=== PATIENT | female | born 1970 | race Native Hawaiian/Other Pacific Islander ===

== ENCOUNTER 2018-11-16 12:26 | Emergency (ER) | payer SELFPAY ==
--- NOTE | 2018-11-16 13:49 | Emergency Department Report ---
Chief Complaint: Dizziness Stated Complaint: DIZZY A WEEK Time Seen by Provider: 11/16/18 13:45 - HPI History of Present Illness: 48-year-old female presents to the emergency department with a one-week history of dizziness/lightheadedness, as if she is going to pass out. At first it occurred only every 2-3 days but for the past 1-2 days it has been pretty consistent. Yesterday she felt that she would've fallen over her was not there to catch her. She has a throbbing headache. No vision change, slurred speech or any neurological deficits. She denies any past medical history. No recent travel or sick contacts at home. No primary care physician. She has not taken anything prior to arrival. - ROS Review of Systems: Positive for dizziness/lightheadedness, headache Negative for vision change, slurred speech, chest pain, fever - Exam Vital Signs: Vital Signs 11/16/18 12:51 Temperature 98.7 F Pulse Rate 78 Respiratory 18 Rate Blood Pressure 104/69 O2 Sat by Pulse 98 Oximetry Physical Exam: Cranial nerves are intact. Heart and lung sounds are normal to auscultation. Patient is awake and alert MSE screening note: Focused history and physical exam performed. Due to findings the following was ordered: I ordered a CBC, BMP, thyroid, test and a CT scan of the head without contrast. EKG is normal without ST elevation IL, ischemia or dysrhythmia. ED Disposition for MSE Condition: Stable
[2018-11-16 14:18] LABS: Basophils % (Auto) 0.9 % (0.0-1.8); Eosinophils # (Auto) 0.1 K/mm3 (0.0-0.4); Eosinophils % (Auto) 2.8 % (0.0-4.3); Hematocrit 38.9 % (30.3-42.9); Hemoglobin 12.6 gm/dl (10.1-14.3); Lymphocytes # (Auto) 2.1 K/mm3 (1.2-5.4); Lymphocytes % (Auto) 43.2 % (13.4-35.0); Mean Corpuscular HGB Conc 32 % (30-34); Mean Corpuscular Hemoglobin 28 pg (28-32); Mean Corpuscular Volume 87 fl (79-97); Monocytes # (Auto) 0.5 K/mm3 (0.0-0.8); Monocytes % (Auto) 10.9 % (0.0-7.3); Platelet Count 292 K/mm3 (140-440); Red Blood Count 4.47 M/mm3 (3.65-5.03)
[2018-11-16 14:32] LABS: BUN/Creatinine Ratio 26; Blood Urea Nitrogen 13 mg/dL (7-17); Calcium 8.9 mg/dL (8.4-10.2); Hemolysis Index 33
[2018-11-16] MEDS ORDERED: NACL 0.9% 1000 ML 1,000 ML IV ONE ×2 (14:55→15:45)
--- NOTE | 2018-11-16 15:35 | Cat Scan Report ---
FINAL REPORT PROCEDURE: CT HEAD/BRAIN WO CON TECHNIQUE: Computerized tomography of the head was performed without contrast material. HISTORY: dizziness, headache COMPARISON: No prior studies are available for comparison. FINDINGS: Brain: Brain density appears normal. No evidence of intracranial hemorrhage. No parenchymal hemorrh age, mass lesions or mass effect are seen. No abnormal extraxial fluid collects or masses are seen. Ventricles: Ventricles are normal size and are midline. Bone Windows: No evidence of skull fracture. Paranasal sinuses: Visualized portions are clear. Mastoid air cells: Visualized portions are clear. IMPRESSION: Negative exam.
--- NOTE | 2018-11-16 15:57 | Emergency Department Report ---
ED Dizziness HPI - General Chief Complaint: Dizziness Stated Complaint: DIZZY A WEEK Time Seen by Provider: 11/16/18 13:45 Source: patient Mode of arrival: Ambulatory Limitations: No Limitations - History of Present Illness Initial Comments: This is a 48-year-old female nontoxic, well nourished in appearance, no acute signs of distress presents to the ED with c/o of intermittent dizziness and lightheadedness x1 week. Patient stated that she feels like she will pass out but denies any syncope episodes. Patient is also c/o of intermittent headaches. Patient describes headache as diffuse with level of 3 out of 10. Patient denies thunderclap headache. Patient denies any radiation of pain. Patient denies any head trauma. Patient denies any visual changes. Patient denies worse headache. Patient denies any numbness, tingling, fever, chills, nausea, vomiting, chest pain, shortness of breath, stiff neck. Patient denies any radiation of pain. Patient denies any allergies or PMH. MD Complaint: dizziness, lightheadedness -: week(s) (1) Timing: intermittent Description: lightheadedness History of Same: No History of Trauma: No Severity: mild Improves With: nothing Worsens With: nothing Associated Symptoms: denies other symptoms. denies: ataxia, chest pain, confusion, cough, diaphoresis, fever/chills, loss of appetite, malaise, seizure, shortness of breath, syncope, weakness - Related Data Allergies Allergy/AdvReac Type Severity Reaction Status Date / Time No Known Allergies Allergy Unverified 11/16/18 12:53 ED Review of Systems ROS: Stated complaint: DIZZY A WEEK Other details as noted in HPI Constitutional: denies: chills, fever Eyes: denies: eye pain, eye discharge, vision change ENT: denies: ear pain, throat pain Respiratory: denies: cough, shortness of breath, wheezing Cardiovascular: denies: chest pain, palpitations Endocrine: no symptoms reported Gastrointestinal: denies: abdominal pain, nausea, diarrhea Genitourinary: denies: urgency, dysuria, discharge Musculoskeletal: denies: back pain, joint swelling, arthralgia Skin: denies: rash, lesions Neurological: vertigo. denies: headache, weakness, paresthesias Psychiatric: denies: anxiety, depression Hematological/Lymphatic: denies: easy bleeding, easy bruising ED Past Medical Hx - Past Medical History Previous Medical History?: No - Surgical History Past Surgical History?: Yes Additional Surgical History: gallstones,tonsillectomy, - Social History Smoking Status: Current Some Day Smoker Substance Use Type: None ED Physical Exam - General Limitations: No Limitations General appearance: alert, in no apparent distress - Head Head exam: Present: atraumatic, normocephalic - Eye Eye exam: Present: normal appearance, PERRL, EOMI - ENT ENT exam: Present: normal exam - Neck Neck exam: Present: normal inspection, full ROM. Absent: tenderness, me ningismus - Respiratory Respiratory exam: Present: normal lung sounds bilaterally. Absent: respiratory distress, wheezes, rales, rhonchi, stridor, chest wall tenderness, accessory muscle use, decreased breath sounds, prolonged expiratory - Cardiovascular Cardiovascular Exam: Present: regular rate, normal rhythm, normal heart sounds. Absent: bradycardia, tachycardia, irregular rhythm, systolic murmur, diastolic murmur, rubs, gallop - Extremities Exam Extremities exam: Present: normal inspection, full ROM - Back Exam Back exam: Present: normal inspection, full ROM - Neurological Exam Neurological exam: Present: alert, oriented X3, normal gait - Expanded Neurological Exam Expanded Patient oriented to: Present: person, place, time Cranial nerves: EOM's Intact: Normal, Facial Sensation: Normal Cerebellar function: Finger to Nose: Normal Upper motor neuron: Sensory Extinction: Normal Sensory exam: Upper Extremity Light Touch: Normal, Upper Extremity Pin Prick: Normal, Upper Extremity Temperature: Normal, UE 2 Point Discrimination: Normal, Lower Extremity Light Touch: Normal, Lower Extremity Pin Prick: Normal, Lower Extremity Temperature: Normal, LE 2 Point Discrimination: Normal Motor strength exam: RUE: 5, LUE: 5, RLE: 5, LLE: 5 Best Eye Response ([place]): (4) open spontaneously Best Motor Response ([place]): (6) obeys commands Best Verbal Response ([place]): (5) oriented [place] Total: 15 - Psychiatric Psychiatric exam: Present: normal affect, normal mood - Skin Skin exam: Present: warm, dry, intact, normal color. Absent: rash ED Course Vital Signs 11/16/18 12:51 Temperature 98.7 F Pulse Rate 78 Respiratory 18 Rate Blood Pressure 104/69 O2 Sat by Pulse 98 Oximetry - Reevaluation(s) Reevaluation #1: 11/16/18 16:06 Patient is speaking in full sentences with no signs of distress noted. ED Medical Decision Making - Lab Data Result diagrams: 11/16/18 14:02 11/16/18 14:02 - Medical Decision Making This is a 48-year-old female that presents with dizziness. Patient is stable and was examined by me and Dr. Bosch. Patient is neurologically stable. There is no stiff neck or neck pain. Vital signs are stable. Patient is afebrile. Labs unremarkable. CT of head unremarkable and dictated by the radiologist. Patient received 2 L of normal saline which the patient stated that headache has subsided and resolved. Orthostatic vital signs obtained and does have some orthostatic vitals. Post-treatment vital signs are much better. Patient was referred to Follow-up with a primary care/neurologist doctor in 3-5 days or if symptoms worsen and continue return to emergency room as soon as possible. At time of discharge, the patient does not seem toxic or ill in appearance. No acute signs of distress noted. Patient agrees to discharge treatment plan of care. No further questions noted by the patient. Critical care attestation.: If time is entered above; I have spent that time in minutes in the direct care of this critically ill patient, excluding procedure time. ED Disposition Clinical Impression: Dizziness Disposition: DC-01 TO HOME OR SELFCARE Is pt being admited?: No Does the pt Need Aspirin: No Condition: Stable Instructions: Dizziness (ED) Additional Instructions: Follow-up with a primary care/neurologist doctor in 3-5 days or if symptoms worsen and continue return to emergency room as soon as possible. Referrals: PRIMARY MD OSCAR [Primary Care Provider] - 3-5 Days LLOYD CHAPMAN MD [Staff Physician] - 3-5 Days NADINE PANTOJA MD [Staff Physician] - 3-5 Days [facility] [Outside] - 3-5 Days Forms: Work/School Release Form(ED)
[2018-11-16 19:23] VITALS: BP 105/68
== END 2018-11-16 19:33 | disposition home or self-care (01) ==
LOC: ED 12:26
DX: R42 Dizziness and giddiness (principal); F17.200 Nicotine dependence, unspecified, uncomplicated; Z90.89 Acquired absence of other organs
CPT/HCPCS: 36415; 70450; 80048; 84443; 84703; 85025; 93005; 93010; 96360; 96361; 99284; J7030

== ENCOUNTER 2019-01-13 09:53 | Emergency (ER) | payer OTHER ==
[2019-01-13] MEDS ORDERED: IBUPROFEN PO ONE (10:31)
--- NOTE | 2019-01-13 10:34 | Emergency Department Report ---
ED Extremity Problem HPI - General Chief complaint: Extremity Problem,Nontraumatic Stated complaint: (L) LEG/KNEE PAIN Time Seen by Provider: 01/13/19 10:17 Source: patient Mode of arrival: Ambulatory Limitations: No Limitations - History of Present Illness Initial comments: Patient is a 48-year-old female who is presenting with left lower extr emity pain for approximately a week. Patient denies any injury. Patient states that the pain started near her left medial knee but now she has pain from the upper thigh down to the calf. Patient states it hurts when she walks more stress to bear weight. The patient denies any cough cold congestion or fevers chills nausea vomiting or chest pain. Pain in the left lower extremity is 8 out of 10 in severity and aching and throbbing. Severity scale (0 -10): 10 - Related Data Previous Rx's Medication Instructions Recorded Last Taken Type HYDROcodone/APAP 5-325 [[place] 1 each PO Q6HR PRN #15 tablet 01/13/19 Unknown Rx 5/325] Ibuprofen [Motrin] 600 mg PO Q8H PRN #20 tablet 01/13/19 Unknown Rx Allergies Allergy/AdvReac Type Severity Reaction Status Date / Time No Known Allergies Allergy Unverified 11/16/18 12:53 ED Review of Systems ROS: Stated complaint: (L) LEG/KNEE PAIN Other details as noted in HPI Comment: All other systems reviewed and negative ED Past Medical Hx - Past Medical History Previous Medical History?: No - Surgical History Past Surgical History?: Yes Additional Surgical History: gallstones,tonsillectomy, - Social History Smoking Status: Never Smoker Substance Use Type: Alcohol - Medications Home Medications: Home Medications Medication Instructions Recorded Confirmed Last Taken Type HYDROcodone/APAP 5-325 [[place] 1 each PO Q6HR PRN #15 tablet 01/13/19 Unknown Rx 5/325] Ibuprofen [Motrin] 600 mg PO Q8H PRN #20 tablet 01/13/19 Unknown Rx ED Physical Exam - General Limitations: No Limitations General appearance: alert, in no apparent distress - Head Head exam: Present: atraumatic, normocephalic - Eye Eye exam: Present: normal appearance - ENT ENT exam: Present: mucous membranes moist - Neck Neck exam: Present: normal inspection - Respiratory Respiratory exam: Present: normal lung sounds bilaterally. Absent: respiratory distress, wheezes, rales - Cardiovascular Cardiovascular Exam: Present: regular rate, normal rhythm. Absent: systolic murmur, diastolic murmur, rubs, gallop - GI/Abdominal GI/Abdominal exam: Present: soft, normal bowel sounds. Absent: distended, tenderness, guarding - Extremities Exam Extremities exam: Present: normal inspection, tenderness (to the entire left lower extremity. This includes calf tenderness on palpation. There is no erythema or rash present.) - Back Exam Back exam: Present: normal inspection - Neurological Exam Neurological exam: Present: alert, oriented X3 - Psychiatric Psychiatric exam: Present: normal affect, normal mood - Skin Skin exam: Present: warm, dry, intact, normal color. Absent: rash ED Course Vital Signs 01/13/19 09:57 Temperature 98.3 F Pulse Rate 69 Respiratory 16 Rate Blood Pressure 133/70 [Right] O2 Sat by Pulse 98 Oximetry - Reevaluation(s) Reevaluation #1: 01/13/19 10:34 Patient to be taken to vascular lab to have a Doppler of her lower extremity performed to rule out DVT ED Medical Decision Making - Radiology Data Ultrasound of the right lower extremity shows no evidence of acute DVT - Medical Decision Making Patient likely with some arthritic changes to the knee with some radiation of pain. Patient was started on Pascual wrap and the patient be discharged home. Critical care attestation.: If time is entered above; I have spent that time in minutes in the direct care of this critically ill patient, excluding procedure time. ED Disposition Clinical Impression: Arthralgia of knee, left Disposition: DC-01 TO HOME OR SELFCARE Is pt being admited?: No Does the pt Need Aspirin: No Condition: Stable Instructions: Arthralgia (ED) Referrals: MEGAN GEE MD [Staff Physician] - 3-5 Days Time of Disposition: 12:22 Print Language: MALAWIAN
--- NOTE | 2019-01-13 11:35 | Vascular Lab Report ---
FINAL REPORT EXAM: VL VENOUS DUPLEX LE LT HISTORY: pain and swelling TECHNIQUE: Grayscale and color and spectral Doppler ultrasound imaging of the left lower extremity w as performed for the purposes of assessing for deep venous thrombosis. PRIORS: None. FINDINGS: No evidence of deep venous thrombosis is seen within the left common femoral through the posterior ti bial and peroneal veins. Normal compression and color flow is seen throughout the venous system of th e left lower extremity. Normal augmentation was seen. Incidentally the right common femoral vein is p atent. IMPRESSION: Negative for left lower extremity deep venous thrombosis.
[2019-01-13 12:45] VITALS: BP 132/85
== END 2019-01-13 12:43 | disposition home or self-care (01) ==
LOC: EDBD → ED 09:53
DX: M25.562 Pain in left knee (principal)

== ENCOUNTER 2019-01-31 15:53 | Outpatient (CLI) | payer OTHER ==
--- NOTE | 2019-01-31 23:17 | XRay Report ---
PROCEDURE: XR KNEE 1-2V LT TECHNIQUE: Left knee radiograph, HISTORY: PAIN IN LEFT KNEE COMPARISONS: None . FINDINGS: Bony alignment and joint spaces are within normal limits. An acute fracture is not identified. Mild d egree intravascular subcutaneous soft tissue swelling is noted. There is a small pocket of air along the posterior aspect of the large and. There is no evidence of joint effusion. IMPRESSION: No acute fracture A small pocket of air along the posterior aspect of the quadriceps tendon most likely represents a pe rforating injury. Infrapatellar subcutaneous soft tissue swelling. This document is electronically signed by Hermelindo Middleton MD., January 31 2019 11:14:33 PM ET
== END 2019-01-31 15:54 | disposition home or self-care (01) ==
LOC: XRAY 15:53
PROVIDERS: ATTEND Orthopaedic Surgery
DX: R22.42 Localized swelling, mass and lump, left lower limb (principal)